=== PATIENT | female | born 1965 | race Caucasian/White ===

== ENCOUNTER → 2018-05-06 13:35 | Outpatient (CLI) | payer OTHER, SELFPAY ==
[2018-05-06 17:03] LABS: HIV - WCH Non-Reactive (Nonreactive)
[2018-05-06 17:57] LABS: Chlamydia Trachomatis by PCR Negative (Negative); Neisserai gonorrhoeae by PCR Negative (Negative); Probe Check PASS; Sample Adequacy Control PASS; Specimen Processing Control PASS
[2018-05-08 11:33] LABS: HEPATITIS B SURFACE AG Negative (Negative)
[2018-05-09 13:25] LABS: HPV Reflexed? NOT INDICATED
[2018-05-10 02:59] LABS: Rapid Plasmin Reagin (RPR) NONREACTIVE (NONREACTIVE)
== END ==
PROVIDERS: Visit Provider Obstetrics & Gynecology
DX: Z12.4 Encounter for screening for malignant neoplasm of cervix (principal); Z11.3 Encounter for screening for infections with a predominantly sexual mode of transmission; N89.8 Other specified noninflammatory disorders of vagina
CPT/HCPCS: 36415; 86592; 86703; 87340; 87491; 87591; 88175; G0145

== ENCOUNTER → 2019-09-30 14:24 | Outpatient (CLI) | payer MEDICAID, SELFPAY ==
[2019-10-01 13:02] LABS: HIV - WCH Non-Reactive (Nonreactive); Hepatitis B Surface Antibody Reactive; Hepatitis B Surface Antigen Non-Reactive (Nonreactive); Hepatitis C Antibody Non-Reactive (Nonreactive)
[2019-10-02 01:05] LABS: Rapid Plasmin Reagin (RPR) NONREACTIVE (NONREACTIVE)
[2019-10-03 01:12] LABS: HSV 1 IgG < 0.91 index (0.00-0.90); HSV 2 IgG 2.75 index (0.00-0.90)
== END ==
PROVIDERS: PCP Internal Medicine Infectious Disease; Referring Provider Obstetrics & Gynecology; Visit Provider Obstetrics & Gynecology
DX: Z12.4 Encounter for screening for malignant neoplasm of cervix (principal); Z11.3 Encounter for screening for infections with a predominantly sexual mode of transmission
CPT/HCPCS: 36415; 86592; 86695; 86696; 86703; 86706; 86803; 87340